=== PATIENT | female | born 1965 | race Caucasian/White ===

== ENCOUNTER 2016-11-12 08:19 | Outpatient (CLI) | payer OTHER ==
[~2016-11-12] VITALS: Ht 157.5 cm; Wt 105.4 kg
--- NOTE | ~2016-11-12 | P ---
[facility] [place] [address] PROCEDURE REPORT Name: ROX SAMANIEGO Room #: DEP GLENN Peguero#: [id number] Admission: 11/12/16 Attend Phys: Howard Ordonez MD Discharge: 11/13/16 Date of : 69 Report #: [id number] THIS REPORT FOR: //name// CC: Argenis Ordonez DATE OF SERVICE: 11/12/2016 PROCEDURE: SVT ablation. PREOPERATIVE DIAGNOSIS: Supraventricular tachycardia. POSTOPERATIVE DIAGNOSIS: Atrial tachycardia arising from the coronary sinus ostium. HISTORY OF PRESENT ILLNESS: The patient is a 51-year-old female with a history of recurrent supraventricular tachycardia. The SVT looked like a long RP tachycardia with negative P waves in the inferior leads. She is here for EP study and possible ablation. DESCRIPTION OF PROCEDURE: The patient was brought to the EP laboratory in a fasting and sedated state and prepped and draped in a sterile fashion. After having undergone informed consent, she was prepped and draped in a sterile fashion. I injected lidocaine to the bilateral groin and I obtained access to the bilateral groins x 2 placing an 8 and 6-Bhutanese short sheath in the right femoral vein and a 6 and 7-Bhutanese short sheath in the left femoral vein using the modified Seldinger technique. Next with fluoroscopy, I placed 3 quadripolar catheters and a decapolar catheter into the HRA, His, and RV position and coronary sinus. The decapolar catheter was placed without any issues. Next, a basic EP study was performed. At baseline, the patient was having intermittent premature atrial contractions that demonstrated a P-wave morphology that was negative in leads II, III and aVF. At baseline, the patient was in sinus rhythm with a sinus cycle length of 745 milliseconds, VT interval of 200 milliseconds, QRS duration 90 milliseconds, QT interval 390 milliseconds, AH interval 135 milliseconds, and HV interval 40 milliseconds. Atrial burst pacing was performed and AV block was noted at 420 milliseconds. AV mak ERP was noted at 380 milliseconds at a [address] cycle length. VA block was noted at 540 milliseconds. Single ventricular extrastimuli were delivered and were both midline and decremental. Next, isoproterenol was initiated and AV block was noted at 270 milliseconds. Atrial ERP was 230 milliseconds at a [address] cycle length. Again, VA conduction was both midline and decremental. There was no AH jump and there were no AV mak echoes. However, on isoproterenol, the frequency of her PACs increased. She would occasionally have 2 or 3 PACs in a row. We continued aggressive atrial and ventricular burst pacing maneuvers and we could not induce any forms of SVT and therefore, I decided that these premature atrial contractions, which looked earliest at CS9, [facility] [address] [place] [address] PROCEDURE REPORT Name: ROX SAMANIEGO Room #: DEP GLENN Peguero#: [id number] Admission: 11/12/16 Attend Phys: Howard Ordonez MD Discharge: 11/13/16 Date of : 69 Report #: [id number] were likely the culprit. It is possible these PACs occasionally would turn into an atrial tachycardia. 3D MAPPING AND ABLATION: Next, I opened up a 4 mm ablation catheter and placed this via the 8-Bhutanese short sheath and I had removed the HRA catheter. A 3D map was created and activation map was created as well and there was evidence of the earliest site being just within the coronary sinus ostium. In fact, when I had placed my catheter at this site, it would terminate. My first 3-4 lesions resulted in an increased frequency of the PACs, but they would not terminate. We did further mapping and I came out slightly further outside of the coronary sinus ostium, possibly slightly anterior to the coronary sinus ostium and when I placed the catheter here again, the PACs terminated. We performed 2 burgos at this site and then, we monitored. We monitored for a period of 45 minutes. There were no further PACs. The ablation was performed while on isoproterenol in order to maintain a higher frequency PACs and we kept the patient on isoproterenol for 20 minutes, turned it off for 10 minutes and resumed it for another 10-15 minutes and there were never any further PACs. We did performed additional atrial burst pacing to try and induce the arrhythmia and we had no further ectopy. Post-ablation, the patient was in sinus rhythm. AV block was noted at 270 milliseconds and the atrial cycle length was 625, VT interval 200, QRS duration 90, QT interval was 375, AH interval was 140 and the HV interval was 40 milliseconds. As such, all catheters and sheaths were pulled. Hemostasis was obtained and the patient awoke neurologically and hemodynamically intact with no complications and no significant bleeding. CONCLUSIONS: 1. Successful ablation of an atrial tachycardia arising near the coronary sinus ostium rendered noninducible. 2. Normal SA mak function. 3. Normal AV mak function. 4. Normal His-Purkinje function. 5. No other inducible arrhythmias on or off isoproterenol. By: [id number] Howard Ordonez MD /nt
--- NOTE | ~2016-11-12 | D ---
[facility] [place] [address] DISCHARGE SUMMARY Name: DANETTEROX KANDI Room #: DEP GLENN Guan.#: [id number] Admission: 11/12/16 Attend Phys: Howard Ordonez MD Discharge: 11/13/16 Date of : 69 Report #: [id number] THIS REPORT FOR: //name// CC: Argenis Ordonez DISCHARGE DIAGNOSES: Atrial tachycardia arising from the coronary sinus ostium. PROCEDURES PERFORMED: EP study with supraventricular tachycardia ablation. BRIEF HISTORY: The patient is a 51-year-old with a history of documented supraventricular tachycardia that appeared to be a long RP tachycardia with a negative P waves in the inferior leads. As she was brought, is intolerant of her medications and continues to have episodes and is here for an ablation. The patient underwent an EP study and there was no inducible AVNRT, no evidence of an accessory pathway. However, she did have frequent premature atrial contractions with negative P waves in the inferior leads that looked similar to what we saw on her stress test, documented arrhythmia. On isoproterenol these became more frequent. A 3D mapping was performed and these were coming from just inside the coronary sinus ostium. Two lesions were performed here and there was no further PACs post-ablation. HOSPITAL COURSE: She was monitored overnight. She did well. On telemetry, she showed she demonstrated normal sinus rhythm with no further premature atrial contractions. Prior to the ablation on telemetry, she is having frequent PACs. The following day, she was doing well without chest pain, shortness of breath or any groin issues. Physical exam was within normal limits with a normal cardiovascular, pulmonary exam. As such, she was deemed stable for discharge home with instructions to follow up with me in 3 months. She will discontinue her flecainide and diltiazem. Discharge instructions were reviewed. By: [id number] Howard Ordonez MD /nt
[~2016-11-12 08:19] MED LIST: CARTIA; CELEXA 20 MG TA20 M1 PO; CYCLOBENZAPRINE5 MG; FLECAINIDE ACET50 M1; LEXAPRO 10 MG T10 M1 PO; NORCO 5-325 TA1 EACH PO; PRILOSEC 20 MG20 MG PO
[2016-11-12] MEDS ORDERED: WELLBUTRIN SR150 MG PO (08:41)
[2016-11-12] MEDS ORDERED: CARTIA XT180 M1 PO (08:41)
[2016-11-12 08:45] VITALS: BP 121/62
[2016-11-12 09:10] LABS: ABSOLUTE NEUTROPHILS 3.5 thou/uL (1.4-8.2); BASOPHILS 0.4 % (0.0-2.0); EOSINOPHILS 2.1 % (0.0-3.0); HEMATOCRIT 39.2 % (37.0-47.0); HEMOGLOBIN 13.3 gm/dL (12.0-15.0); LYMPHOCYTES 32.8 % (24.0-44.0); MCH 29.5 pg (26.0-34.0); MCV 86.7 fL (80.0-100.0); MONOCYTES 8.9 % (1.0-8.0); PLATELET COUNT 220 thou/uL (150-400); POLYS 55.8 % (36.0-66.0); RBC 4.52 mil/uL (4.20-5.00); WBC 6.2 thou/uL (4.0-11.0)
[2016-11-12 09:11] LABS: MANUAL DIFF NO
[2016-11-12 09:19] LABS: CALCIUM 8.9 mg/dL (8.5-10.1); CREATININE 0.9 mg/dL (0.6-1.0); POTASSIUM 3.9 mmol/L (3.5-5.1)
[2016-11-12 09:23] LABS: ALBUMIN 3.7 g/dL (3.4-5.0); TOTAL BILIRUBIN 0.3 mg/dL (<0.1-1.0); TOTAL PROTEIN 7.3 g/dL (6.4-8.2)
[2016-11-12 09:26] LABS: PROTIME 10.1 Seconds (9.3-11.4)
[2016-11-12 17:17] VITALS: BP 112/68
[2016-11-12 20:36] VITALS: BP 108/59
[2016-11-13 00:01] VITALS: BP 82/45
[2016-11-13 04:52] VITALS: BP 104/58
[2016-11-13 07:55] VITALS: BP 106/56
[2016-11-13 08:28] VITALS: BP 106/56
== END 2016-11-13 09:11 | disposition home or self-care (01) ==
LOC: CATH 08:19 → 2N 16:41 → CATH 11-13 09:11
PROVIDERS: Internal Medicine Cardiovascular Disease
DX: I47.1 Supraventricular tachycardia (principal); Z90.49 Acquired absence of other specified parts of digestive tract; Z98.890 Other specified postprocedural states; F32.9 Major depressive disorder, single episode, unspecified; K21.9 Gastro-esophageal reflux disease without esophagitis; F41.9 Anxiety disorder, unspecified; Z87.891 Personal history of nicotine dependence; E78.5 Hyperlipidemia, unspecified; E66.9 Obesity, unspecified
CPT/HCPCS: 10081; 70005